=== PATIENT | female | born 1980 | race American Indian/Alaskan Native ===

== ENCOUNTER 2020-10-21 16:59 | Emergency (ER) | payer BC ==
[2020-10-21 17:32] VITALS: BP 130/83
[2020-10-21] MEDS ORDERED: ASPIRIN 81 MG TAB CHEW PO ONE (17:33)
--- NOTE | 2020-10-21 17:38 | Emergency Department Report ---
ED General Adult HPI - General Chief complaint: Chest Pain Stated complaint: CHEST PAIN, NUMBNESS IN FOOT, PAIN IN THE LEFT LEG Time Seen by Provider: 10/21/20 17:32 Source: patient Mode of arrival: Ambulatory Limitations: No Limitations - History of Present Illness Initial comments: 40-year-old female patient presents to the emergency department with complaints of chest pain starting his morning. Patient describes the pain as "sharp," constant, no exacerbating or relieving factors identified. Patient called her primary care physician at the [place], who instructed her to come to the emergency department for further evaluation. She also reports paresthesias along the plantar surface of her left foot for 2 days. No preceding fall, trauma, or injury. No known history of cardiopulmonary disease. No history of diabetes, hypertension, hyperlipidemia. No history of cigarette use. No venous embolism risk factors identified on history. No medications prior to arrival. Denies fever, chills, cough, shortness of breath, wheezing, palpitations, syncope, lower extremity pain/swelling. Denies all other complaints at this time. - Related Data Previous Rx's Medication Instructions Recorded Last Taken Type RX: Naproxen 500 mg PO BID #20 tablet 10/21/20 Unknown Rx Allergies Allergy/AdvReac Type Severity Reaction Status Date / Time No Known Allergies Allergy Verified 10/21/20 17:32 ED Review of Systems ROS: Stated complaint: CHEST PAIN, NUMBNESS IN FOOT, PAIN IN THE LEFT LEG Other details as noted in HPI Other: GENERAL: Negative for fever, chills, weight change, anorexia, fatigue. ENT: Negative for ear pain, difficulty hearing, sore throat, nasal congestion, epistaxis. CARDIOVASCULAR: Positive for chest pain. PULMONARY: Negative for cough, dyspnea, wheezing, orthopnea, cyanosis. GASTROINTESTINAL: Negative for abdominal pain, nausea, vomiting, diarrhea, constipation. MUSCULOSKELETAL: Negative for joint pain, joint swelling, myalgias, back pain, neck pain. NEUROLOGICAL: Positive for paresthesias. INTEGUMENTARY: Negative for erythema, rash, diaphoresis, laceration, ecchymosis. HEMATOLOGICAL: Negative for hemoptysis, hematemesis, hematochezia, hematuria. PSYCHIATRIC: Negative for hallucinations, suicidal ideation, homicidal ideation, anxiety, depression. ED Past Medical Hx - Past Medical History Hx Asthma: Yes - Social History Smoking Status: Never Smoker Substance Use Type: None - Medications Home Medications: Home Medications Medication Instructions Recorded Confirmed Last Taken Type RX: Naproxen 500 mg PO BID #20 tablet 10/21/20 Unknown Rx ED Physical Exam - General Limitations: No Limitations - Other Other exam information: General: Awake and alert. No acute distress. Head: Atraumatic, normocephalic. Eyes: EOMI. Pupils are equal and round. Normal sclera and conjunctiva. ENT: Oral mucosa is moist. Normal pharyngeal exam. Neck: Supple. No lymphadenopathy. Pulmonary: No respiratory distress. Clear to auscultation bilaterally. Cardiac: Regular rate and rhythm. Pulses are palpable and equal bilaterally. No lower extremity cyanosis or edema. No calf tenderness. Skin: Warm and dry. No rashes. Abdomen: Soft, non-tender, non-protuberant. No guarding, rigidity, or rebound. Bowel sounds are normal. No organomegaly or masses noted. Back: Normal alignment. No CVA tenderness. Extremities: Symmetrical. Full range of motion intact. Neurological: Alert and oriented, appropriately interactive, no focal deficits. Strength and sensation intact throughout. Psych: Cooperative. Appropriate mood and affect. Speech is evenly metered. Thoughts are logically construed. ED Course Vital Signs 10/21/20 17:30 Temperature 98.9 F Pulse Rate 98 H Respiratory 18 Rate Blood Pressure 130/83 O2 Sat by Pulse 100 Oximetry ED Medical Decision Making - Lab Data Result diagrams: 10/21/20 18:03 10/21/20 18:03 - EKG Data 10/21/20 19:14 EKG shows normal sinus rhythm with a ventricular rate of [address]pm[address] Normal axis. Normal CT interval. Normal QT interval. Good R wave progression. Isolated T wave inversion noted to V3. No ST segment elevation/depression. Over read by attending emergency physician, who agrees with this interpretation. - Medical Decision Making Differential diagnosis including but not limited to: acute coronary syndrome, cardiac arrhythmia, pericarditis, pericardial effusion/cardiac tamponade, pneumothorax, pleural effusion, pulmonary embolism, myocarditis Patient presents to the emergency department with signs and/or symptoms that arise low risk clinical suspicion for pulmonary embolism. The patient has none of the following clinical criteria: age >50, heart rate >100, room air O2 saturation <94%, history of DVT/PE, recent trauma/surgery, hemoptysis, exogenous estrogen, or signs/symptoms of DVT. As a result, this patient has very low probability of pulmonary embolism and further testing is not indicated. On re-evaluation, the patient is well-appearing, vital signs are stable, and pain is controlled. EKG without overt evidence of STEMI, Brugada syndrome, delta wave, significantly prolonged QT, or life-threatening arrhythmia. Supervising physician is in agreement with EKG interpretation. Initial troponin within normal limits. Low clinical suspicion for other life-threatening intrathoracic pathology including but not limited to: pulmonary embolism, aortic aneurysm/dissection, pneumothorax, or pneumonia. The patient is at low risk (0.9%-2.7%) of experiencing a major cardiac event within the next six weeks according to the HEART score guidelines. The patient has no known history of coronary artery disease and is therefore a candidate for risk stratification using the HEART pathway. It has been explained to the patient that the HEART score/pathway are adjunct decision-making tools and are not designed to replace clinical judgment. Shared decision making was implemented and the patient agreed to undergo additional testing as recommended by the HEART pathway guidelines. On reevaluation, patient remains stable. Repeat troponin within normal limits. History and exam findings suggestive of chest wall pain. Patient will be discharged home with appropriate analgesics. Strict return precautions provided. Discussed the importance of prompt PCP follow-up. Additionally, it has been explained to the patient that the primary purpose of this evaluation was to identify whether or not an acute coronary syndrome was present, and that the results of todays evaluation do not reliably exclude underlying coronary artery disease. Patient expressed understanding and was given the opportunity to ask questions, all of which were satisfactorily answered prior to discharge home. Written instructions and appropriate prescriptions/referrals provided. Critical care attestation.: If time is entered above; I have spent that time in minutes in the direct care of this critically ill patient, excluding procedure time. ED Disposition Clinical Impression: Nonspecific chest pain Disposition: DC-01 TO HOME OR SELFCARE Is pt being admited?: No Does the pt Need Aspirin: No Condition: Stable Instructions: Nonspecific Chest Pain, Adult Additional Instructions: Take Tylenol every 4 hours as needed for pain. Take Naprosyn twice daily with food as needed for pain. Follow-up with your primary care provider this week. Call tomorrow to schedule an appointment. Bring a copy of today's results with you to your follow-up appointment. Return to the emergency department immediately for new or worsening symptoms. Specifically, return to the emergency department immediately for fever, difficulty breathing, worsening chest pain, palpitations, mental status changes, leg swelling, or any other concerns. Prescriptions: RX: Naproxen 500 mg PO BID #20 tablet Referrals: , AFFAIRS [Other] - 3-5 Days Time of Disposition: 21:40 HEART Score - HEART Score History: Slightly suspicious EKG: Non-specific Age: < 45 Risk factors: No known risk factors Troponin: Troponin T < 0.010 ng/mL (0.00-0.029) 10/21/20 20:57 Troponin: < normal limit HEART Score: 1 - Critical Actions Critical Actions: 0-3 pts:0.9-1.7%risk of adverse cardiac event.Candidate for discharge
--- NOTE | 2020-10-21 18:09 | XRay Report ---
CHEST PA AND LATERAL VIEWS INDICATION: chest pain. COMPARISON: None. FINDINGS: Support devices: None. Heart: Within normal limits. Lungs/Pleura: No acute pulmonary or pleural findings. IMPRESSION: 1. No acute findings. Signer Name: Afshin Bolivar MD Signed: 10/21/2020 6:04 PM Workstation Name: [id number]
[2020-10-21 18:32] LABS: Basophils % (Auto) 0.7 % (0.0-1.8); Eosinophils # (Auto) 0.1 K/mm3 (0.0-0.4); Eosinophils % (Auto) 1.6 % (0.0-4.3); Hematocrit 36.1 % (30.3-42.9); Lymphocytes % (Auto) 35.8 % (13.4-35.0); Mean Corpuscular HGB Conc 33 % (30-34); Mean Corpuscular Volume 85 fl (79-97); Monocytes # (Auto) 0.5 K/mm3 (0.0-0.8); Monocytes % (Auto) 8.7 % (0.0-7.3); Platelet Count 246 K/mm3 (140-440); Red Blood Count 4.24 M/mm3 (3.65-5.03); Red Cell Distribution Width 15.7 % (13.2-15.2)
[2020-10-21 18:53] LABS: Alanine Aminotransferase 8 units/L (7-56); Albumin 4.2 g/dL (3.9-5); BUN/Creatinine Ratio 13; Blood Urea Nitrogen 10 mg/dL (7-17); Calcium 9.2 mg/dL (8.4-10.2); Hemolysis Index 11
--- NOTE | 2020-10-23 11:51 | Electrocardiograph Report ---
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
== END 2020-10-21 22:15 | disposition home or self-care (01) ==
LOC: ED 16:59
DX: R07.89 Other chest pain (principal); R20.0 Anesthesia of skin; J45.909 Unspecified asthma, uncomplicated; Z79.899 Other long term (current) drug therapy
CPT/HCPCS: 36415; 71046; 80053; 83735; 84484; 85025; 93005